=== PATIENT | female | born 1990 | race African-American/Black ===

== ENCOUNTER 2019-09-26 12:49 | Emergency (ER) | payer SELFPAY ==
[2019-09-26 12:49] VITALS: BP 112/71; PULSE 101; RESP 16; TEMP 37.5; O2SAT 96; BMI 24.3
--- NOTE | 2019-09-26 12:58 | ED.RN ---
pt c/o body aches, throat pain, sinus pressure.
--- NOTE | 2019-09-26 13:02 | ED.VISSUMM ---
- ER Visit Summary Date of Service: 09/26/19 Chief Complaint: [Sinus congestion and sore throat] History of Present Illness: The patient is a 29 F [presents the emergency department with symptoms of not feeling well for about 2 weeks. Patient states that she started with sinus pressure and congestion but then developed into the discomfort in her throat. She denies difficulty swallowing. She has had subjective fever at home. She is not had any cough. She does describe a headache and some body aches. She denies urinary symptoms. Patient has no medical history.] Physical Examination: [HEENT-PERRLA, EOMI. Cranial nerves II through XII grossly intact. TMs clear. Mucous membranes moist. No adenopathy. No pharyngeal erythema. Uvula midline. No trismus. No tonsillar exudates noted. No significant adenopathy of the neck noted. Patient does have some tenderness over the maxillary and frontal sinuses. Cardiovascular-regular rate and rhythm without murmur or ectopy Lungs-clear to auscultation, chest wall stable without crepitus or subcu emphysema Abdomen-normoactive bowel sounds, soft, nontender, no rebound or rigidity, no peritoneal signs. Extremities-intact ?4, normal range of motion, normal pulses, atraumatic] Test Results: [None indicated] Emergency Department Course and Treatment: [Patient was started on amoxicillin] Treatment Plan: [We will be treated with amoxicillin for 10 days. Patient advised to follow-up with primary care physician [employer] activities clerk for no doc within next 7 days. Days.] Disposition: [Discharged home in stable condition.] Impression: [Sinusitis] This note was generated with [employer] dictation software. It may contain incorrect words, spelling, and punctuation that were not noted in review of the chart prior to signing ED Disposition - Plan for ED Patient: Referrals: NOT,DEFINED [Primary Care Provider] -
--- NOTE | 2019-09-26 13:04 | ED.DEP ---
ED Disposition - Plan for ED Patient: Instructions: SINUSITIS, Abx Tx Prescriptions: Amoxicillin 500 mg PO TID #30 tab Transmission Status: Pending to [facility] Referrals: NOT,DEFINED [Primary Care Provider] - Kamar Alfredo MD [STAFF PHYSICIAN] - 5-7 Days
[2019-09-26] MEDS: AMOXICILLIN 500 MG CAPSULE PO (13:12)
== END 2019-09-26 13:15 | disposition home or self-care (01) ==
LOC: ED 13:11
PROVIDERS: Emergency Provider Emergency Medicine
DX: J32.9 Chronic sinusitis, unspecified (principal)
CPT/HCPCS: 99283